=== PATIENT | female | born 1990 | race Caucasian/White ===

== ENCOUNTER 2018-11-02 15:20 | Emergency (ER) | payer OTHER ==
[~2018-11-02] VITALS: Ht 157.5 cm; Wt 56.7 kg
== END 2018-11-02 19:33 | disposition home or self-care (01) ==
LOC: ER 15:20
DX: O26.891 Other specified pregnancy related conditions, first trimester (principal); O34.219 Maternal care for unspecified type scar from previous cesarean delivery; Z34.81 Encounter for supervision of other normal pregnancy, first trimester; R10.2 Pelvic and perineal pain